=== PATIENT | male | born 1985 | race African-American/Black ===

== ENCOUNTER 2025-01-28 01:37 | Emergency (ER) | payer SELFPAY ==
[~2025-01-28] VITALS: Ht 170.2 cm; Wt 74.0 kg
[2025-01-28] MEDS: TETANUS, DIPHTHERIA, PERTUSSIS VAC/PF 0.5ML (>10YR OLD) IM ONE (01:28)
[2025-01-28] MEDS: IBUPROFEN 600MG TABLET PO ONE (01:30)
[2025-01-28 01:52] VITALS: O2SAT 98
[2025-01-28] MEDS ORDERED: BO1 TP (01:59)
[2025-01-28] MEDS ORDERED: IBUP-1455 MT (01:59)
[2025-01-28] MEDS: LIDOCAINE HCL 1% 20ML VIAL INFIL ONE (02:01)
[2025-01-28 02:13] VITALS: BP 107/64; PULSE 55; RESP 16; TEMP 36.9; O2SAT 100
== END 2025-01-28 02:21 | disposition home or self-care (01) ==
LOC: ER 01:45
DX: S01.112A Laceration without foreign body of left eyelid and periocular area, initial encounter (principal); Z23 Encounter for immunization; Y04.0XXA Assault by unarmed brawl or fight, initial encounter; Y93.89 Activity, other specified; Y92.89 Other specified places as the place of occurrence of the external cause; Y99.8 Other external cause status
CPT/HCPCS: 99283; 90715; 12011; 90471; J2003